=== PATIENT | female | born 1945 | race Hispanic/Latino ===

== ENCOUNTER → 2024-10-14 | Outpatient (CLI) | payer OTHER ==
--- NOTE | 2024-10-15 09:21 | HMCIMG ---
EXAM: CT Cardiac calcium scoring. CLINICAL HISTORY: CAD screening. TECHNIQUE: Thin collimated axial CT cardiac images were obtained. A CT scan is done according to ALARA (As Low As Reasonably Achievable). CONTRAST: None. COMPARISON: None provided. FINDINGS: Calcium Score: VESSEL Number of lesions Volume mm3 Equi. Mass/mg Calcium score LM 0 00.0 --.-- 00.0 LAD 1 1.1 --.-- 1.8 LCX 0 0.0 --.-- 0.0 RCA 0 0.0 --.-- 0.0 Total 1 0.0 --.-- 1.8 IMPRESSION: The calcium score is 1.8. This places the patient In the 10th percentile. /[place]
== END | disposition home or self-care (01) ==
LOC: RAH 13:27
PROVIDERS: ATTEND Internal Medicine Cardiovascular Disease
DX: Z13.6 Encounter for screening for cardiovascular disorders (principal)
CPT/HCPCS: 75571